=== PATIENT | female | born 1945 | race Caucasian/White ===

== ENCOUNTER 2018-06-27 10:30 | Outpatient (RCR) | payer MEDICARE, OTHER ==
--- NOTE | 2018-05-31 12:09 | NUR ---
1105 Call to patients pharmacy to refill her Lexapro as per Dr Malone. Pharmacy states the prescriptions have already been called in. 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
--- NOTE | 2018-06-18 11:06 | NUR ---
06/14/18 Patient in today for Treatment team. Pt presents clean and neat, alert and oriented x 4. Pt in in a bright mood. Pt states she has alot going on medically but she is coping. Pt states she is now sleeping with a CPAP machine. pt denies any suicidal thoughts at this time. Pt will continue with IOP 2x/week. Pt will follow up in one month. Treatment team concluded.
[~2018-06-27 10:30] MED LIST: ALPRAZOLAM ER1 MG PO; ASPIRIN 81 LOW81 MG PO; FENTANYL25 MCG/HR TD; LEVEMIR FL100 UNIT/M SC; LEVOTHROID125 MCG PO; LEXAPRO20 MG PO; METFORMIN1000 MG PO; METFORMIN500 M1 PO; OXYCODONE15 MG PO; XANAX XR1 MG PO; XANAX1 MG PO; XTAMPZA ER9 MG PO; ZESTRIL/PRINIV2.5 MG PO; ZESTRIL5 M1 PO; ZETIA10 MG PO; ZYRTEC10 M3 PO; [UNRECOGNIZED DRUG - OTHER] PO
== END 2018-06-27 23:59 | disposition home or self-care (01) ==
LOC: PATHWAYS 10:30
PROVIDERS: ATTEND Specialist
DX: F33.8 Other recurrent depressive disorders (principal); F41.1 Generalized anxiety disorder; Z63.8 Other specified problems related to primary support group; F43.21 Adjustment disorder with depressed mood